=== PATIENT | female | born 1990 | race Two or more races ===

== ENCOUNTER 2024-04-28 20:01 | Emergency (ER) | payer SELFPAY ==
[2024-04-28 20:02] VITALS: BMI 35.2
[2024-04-28 20:45] VITALS: BP 152/79; PULSE 78; RESP 18; TEMP 36.7; O2SAT 98
--- NOTE | 2024-04-28 20:57 | XR_ITS ---
Examination: Cervical spine 3 views TECHNIQUE: AP, lateral, coned AP odontoid cervical spine 3 views Exam date and time: April 28, 2023 at 0908 hours INDICATIONS: Right neck pain today FINDINGS: Adequate limits of level of the vertebral bodies No cervical fracture Early posterior osteophyte formation C4-C5 Intact odontoid IMPRESSION: Early degenerative disc disease C4-C5
--- NOTE | 2024-04-28 20:58 | EDNOTE_ITS ---
ED Headache RME/HPI General Chief Complaint: Headache Stated Complaint: HEADACHE Time Seen by Provider: 04/28/24 20:22 Arrival date/time: 04/28/24 20:01 34-year-old female reports with complaints of headache radiating from the right side of her neck and shoulder up to her head x 1 day. Patient states that she i s taking four 200 mg ibuprofens with no improvement of symptoms. Patient denies any trauma denies any vision or hearing changes dizziness nausea vomiting abdominal pain weakness fatigue. Patient also denies history of migraine headaches or neck injuries Limitations: no limitations Related Data Previous Rx's ?Medication ?Instructions ?Recorded tramadol 37.5 mg-acetaminophen 325 1 tab PO Q8H PRN pain #15 tabs 04/28/24 mg tablet Allergies Allergy/AdvReac Type Severity Reaction Status Date / Time No Known Allergies Allergy Verified 04/28/24 20:04 Review of Systems Constitutional Constitutional: Denies chills, Denies fever(s) and Reports headache(s) Eyes Eyes: Denies blind spots and Denies change in vision ENT Ears, Nose, Mouth, and Throat: Denies dizziness, Reports headache(s), Reports neck pain, Denies tongue swelling and Denies vertigo Cardiovascular Cardiovascular: Denies chest pain, Denies dyspnea and Denies syncope Respiratory Respiratory: Denies cough and Denies dyspnea Gastrointestinal Gastrointestinal: Denies nausea and Denies vomiting Musculoskeletal Musculoskeletal: Reports arthralgias, Reports neck pain and Denies tingling Integumentary/Breasts Skin/Breast: Denies rash and Denies skin pain Neurologic Neurologic: Denies dizziness, Reports headache(s), Reports radicular pain, Denies syncope, Denies tingling and Denies vertigo Psychiatric Psychiatric: Denies anxiety and Denies depression Hematologic/Lymphatic Hematologic/Lymphatic: Denies easy bleeding Allergic/Immunologic Allergic/Immunologic: Denies tongue swelling Past Medical History Past Medical History CARDIAC: Negative Congestive Heart Failure RESPIRATORY: Negative Chronic Obstructive Pulmonary Disease (COPD) GENITOURINARY: Negative Renal Disease ENDOCRINE: Negative Diabetes Mellitus Type 1 or Diabetes Mellitus Type 2 Social History SMOKING STATUS: Never smoker ED Exam General Limitations: Present no limitations General appearance: Present alert and in no apparent distress Eye Eye exam: Present normal appearance, PERRL and EOMI ENT ENT exam: Present normal exam, normal oropharynx and mucous membranes moist Neck Neck exam: Present normal inspection and trachea midline; Absent full ROM (Decreased range of motion with lateral rotation and tilt to the right) or tenderness (Along right sternocleidomastoid muscle) Chest Chest inspection: Present normal inspection and symmetric chest wall rise Respiratory Respiratory exam: Present normal lung sounds bilaterally Cardiovascular Cardiovascular exam: Present regular rate, normal rhythm and normal heart sounds Abdominal Exam Abdominal exam: Present soft and normal bowel sounds Extremities Exam Extremities exam: Present normal inspection and full ROM Back Exam Back exam: Present normal inspection and full ROM Neurological Exam Neurological exam: Present alert, oriented X3 and CN II-XII intact Psychiatric Psychiatric exam: Present normal affect and normal mood Skin Skin exam: Present warm, dry, intact and normal color Course Course Course Narrative: 34-year-old female reports with complaints of of neck and head pain. Patient is x-ray of the cervical spine show straightening of the lordotic curve but no derangements of the spine. Quality Measures none Orders Category Date Time Status XR cervical spine 2-3V Stat Exams 04/28/24 20:57 Taken Vital Signs Vital signs: Vital Signs Temperature 98.0 F 04/28/24 20:45 Pulse Rate 78 04/28/24 20:45 Respiratory Rate 18 04/28/24 20:45 Blood Pressure 152/79 H 04/28/24 20:45 Pulse Oximetry (%) 98 04/28/24 20:45 Oxygen Delivery Method Room Air 04/28/24 20:45 Headache Patient data External records reviewed:: None Clinical information provided by:: patient Social determinants that could affect healthcare access:: none Patient has the following chronic illnesses:: none How is presenting disease/condition affected by chronic disease/condition?: no chronic disease Evaluation data The following diagnostics were reviewed and interpreted by me:: radiology exam(s) Lab and/or radiology exams considered but not ordered:: none Interpretation Summary: Training of the lordotic curve cervical spine but no derangements of the spine noted Medications / Prescriptions Medications or Prescriptions considered but not ordered:: none Medication administrations:: none Consultations Consultation(s) initiated? (list below): No Diagnosis Differential diagnosis headache: tension headache and headache Most likely diagnosis given after review of the tests above:: cervical spine strain Admission Indicated Admission indicated?: not indicated Admission Request Was there a request for admission?: No Disposition Plan Disposition Plan: Discharge Discharge Attestation Discharge Attestation: The patient and all family members were given an opportunity to ask questions a nd understood the discharge instructions. Discharge instructions specifically effects, indications for sooner follow up or return to the emergency department, and the expected course of current diagnosis. Patient condition: Stable Discharge Plan Plan Patient Disposition: HOME (Self Care) Prescriptions/Referrals Prescriptions/Med Rec: New tramadol-acetaminophen 37.5-325 mg tablet 1 tab PO Q8H PRN (Reason: pain) Qty: 15 0RF Problem List Clinical Impression: Acute cervical myofascial strain Patient/Caregiver Discharge Instructions Education Materials: ED Neck Sprain or Strain Additional Instructions: Take medications as directed hydrate well try to use a neck pillow to sleep and follow-up with your primary care provider if no improvement in 5 days Print Language: Spanish Stand Alone Forms: Tamika Award Info., Work/School Release, Patient Portal Info Letter
== END 2024-04-28 22:01 | disposition home or self-care (01) ==
PROVIDERS: Emergency Provider Emergency Medicine; PCP Family Medicine
DX: S16.1XXA Strain of muscle, fascia and tendon at neck level, initial encounter (principal); X58.XXXA Exposure to other specified factors, initial encounter
CPT/HCPCS: 72040; 99283